=== PATIENT | male | born 1985 | race Caucasian/White ===

== ENCOUNTER 2018-10-10 11:05 | Emergency (ER) | payer MEDICAID ==
[~2018-10-10] VITALS: Ht 172.7 cm; Wt 88.6 kg
[2018-10-10] MEDS ORDERED: ALBUTEROL SULFATE HFA 90 MCG/PUFF 8 GM INHALER IH ONE (13:00)
[2018-10-10 13:21] VITALS: BP 138/79
== END 2018-10-10 13:36 | disposition home or self-care (01) ==
LOC: EMS 11:06
DX: J40 Bronchitis, not specified as acute or chronic (principal); R03.0 Elevated blood-pressure reading, without diagnosis of hypertension; J45.909 Unspecified asthma, uncomplicated
CPT/HCPCS: J3535